=== PATIENT | female | born 1930 | race Caucasian/White ===

== ENCOUNTER 2019-03-12 12:09 | Outpatient (CLI) | payer OTHER, MEDICARE ==
[~2019-03-12 12:09] MED LIST: ESOM20CA PO
[2019-03-12] MEDS ORDERED: IOHEXOL 350 mgI/mL, 150 ML INFUS..BTL IV ONE (12:49)
== END 2019-03-12 20:04 | disposition home or self-care (01) ==
LOC: SCT 12:09
DX: I82.4Z2 Acute embolism and thrombosis of unspecified deep veins of left distal lower extremity (principal); I71.2 Thoracic aortic aneurysm, without rupture; R79.1 Abnormal coagulation profile
CPT/HCPCS: 71275; 93971; Q9967